=== PATIENT | female | born 1955 | race Caucasian/White ===

== ENCOUNTER → 2018-10-25 | Outpatient (CLI) | payer MEDICARE ==
--- NOTE | 2018-10-25 13:05 | Diagnostic Imaging Report ---
PROCEDURE: MRI left upper extremity without contrast. TECHNIQUE: Multiplanar, multisequence [id number]-cesrbhyy MRI of the left upper extremity was accomplished. INDICATION: Left shoulder pain. COMPARISON: There are no prior studies available for comparison. FINDINGS: The T2 coronal fat-saturated series shows a few small areas of slightly altered signal within the rotator cuff. These may be related to tendinosis. The bursal aspect of the anterior half of the rotator cuff is somewhat thinned and may be frayed. However, for the most part, the rotator cuff appears to be intact. The supraspinatus muscle is not retracted or bunched. There is hypertrophy of the acromioclavicular joint, and this does result in mild narrowing of the outlet for the supraspinatus muscle. There is also a trace amount of fluid in the subacromial and subdeltoid bursa indicating that there is an element of mild inflammation present. The biceps tendon and the subscapularis tendon are intact. There is no evidence for a tear of the labrum. There is no abnormal signal arising from the osseous structures to suggest bone edema or a fracture. IMPRESSION: 1. The small areas of altered signal within the rotator cuff may be related to tendinosis. The bursal aspect of the anterior half of the rotator cuff also seems to be thinned and perhaps slightly frayed. However, for the most part, the rotator cuff is intact and the supraspinatus muscle is not retracted or bunched. 2. There is mild narrowing of the outlet for the supraspinatus muscle due to acromioclavicular hypertrophy. There is also a small amount of fluid in the subacromial and subdeltoid bursa indicating there is mild inflammation. 3. The labrum is intact. 4. There is no acute bony abnormality noted. Dictated by: Dictated on workstation # [id number]
== END ==
LOC: RAD 11:44
PROVIDERS: ATTEND Nurse Practitioner Family
DX: M75.22 Bicipital tendinitis, left shoulder (principal); M89.312 Hypertrophy of bone, left shoulder; M25.412 Effusion, left shoulder; M60.812 Other myositis, left shoulder
CPT/HCPCS: 73221

== ENCOUNTER → 2018-11-01 | Outpatient (CLI) | payer MEDICARE ==
--- NOTE | 2018-11-01 10:00 | Diagnostic Imaging Report ---
PROCEDURE: MR imaging cervical spine without contrast. TECHNIQUE: Multiplanar, multisequence MR imaging of the cervical spine was performed without contrast. INDICATION: Left shoulder pain, limited range of motion. COMPARISON: There are no prior studies available for comparison. FINDINGS: The T2 sagittal images show the vertebral body heights and alignment to be within normal limits. The intervertebral spaces are fairly well-maintained although there is desiccation of the disc at every level. Furthermore, there is a disc bulge centrally at the C5-6 level. The disc indents the ventral aspect of thecal sac and narrows the AP diameter to approximately 7 mm. There is mild narrowing of the neural foramen bilaterally at this level. There is also a disc bulge central at the C6-7 level. The AP diameter of thecal sac is narrowed to 9 mm. There is also mild narrowing of the neural foramen bilaterally at this level. The remainder of the cervical spine is unremarkable for spinal stenosis or nerve root encroachment. There is no abnormal signal arising from the cord or the vertebral bodies to indicate an acute abnormality. There is no sign of a paraspinal mass. IMPRESSION: 1. 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 There is spinal stenosis at both of these levels with the C5-6 level being the more severely affected. 2. The remainder of the cervical spine is unremarkable for spinal stenosis or nerve root encroachment. 3. There is no acute bony abnormality identified and there is no sign of a cord lesion. Dictated by: Dictated on workstation # [id number]
== END ==
LOC: RAD 08:08
PROVIDERS: ATTEND Nurse Practitioner Family
DX: M50.321 Other cervical disc degeneration at C4-C5 level (principal); M47.812 Spondylosis without myelopathy or radiculopathy, cervical region; M48.02 Spinal stenosis, cervical region; M89.9 Disorder of bone, unspecified
CPT/HCPCS: 72141

== ENCOUNTER 2020-04-01 13:55 | Emergency (ER) | payer MEDICARE ==
[~2020-04-01] VITALS: Ht 182.9 cm; Wt 95.5 kg
[2020-04-01 14:00] VITALS: BP 152/56
--- NOTE | 2020-04-01 14:10 | ED General ---
General Stated Complaint: LT FACIAL DROOP Source of Information: Patient, RN/MD Exam Limitations: No Limitations History of Present Illness Date Seen by Provider: April 01, 2020 Time Seen by Provider: 13:55 Initial Comments This patient is a 65-year-old female presents to the emerge department complaining of her left upper lip is numb. States has been like this all day long and that she can get checked. On exam patient has minimal swelling to the left upper lip and appears in like she bit her lip patient states she might have done that in her sleep. Denies any other trauma. No other findings on exam. All cranial nerves. Intact patient given reassurance patient we'll treat with rest ice and Tylenol Motrin. Patient be discharged home Timing/Duration: 4-6 Hours Severity: Mild Modifying Factors: worse with Cold Therapy, worse with Eating, worse with Immobilization, worse with Medication, worse with Movement, worse with Rest, worse with Other Associated Systoms: No Denies Symptoms, No Chest Pain, No Cough, No Diaphoresis, No Fever/Chills, No Headaches, No Loss of Appetite, No Malaise, No Nausea/Vomiting, No Rash, No Seizure, No Shortness of Air, No Syncope, No Weakness, No Other Allergies and Home Medications Patient Home Medication List Home Medication List Reviewed: Yes Review of Systems Review of Systems Constitutional: see HPI EENTM: other (lip swelling and numbness); No see HPI, No no symptoms reported, No ear discharge, No hearing loss, No ear pain, No blurred vision, No double vision, No eye pain, No tearing, No vision loss, No dental problems, No hoarseness, No mouth pain, No mouth swelling, No epistaxis, No nose congestion, No nose pain, No throat pain, No throat swelling Respiratory: No no symptoms reported, No see HPI, No cough, No dyspnea on exertion, No hemoptysis, No orthopnea, No phlegm, No short of breath, No stridor, No wheezing, No other Cardiovascular: No no symptoms reported, No see HPI, No chest pain, No edema, No Hx of Intervention, No palpitations, No syncope, No vascular heart diseas, No other Gastrointestinal: No RUQ, No LUQ, No RLQ, No LLQ, No no symptoms reported, No see HPI, No abdominal pain, No constipation, No diarrhea, No dysphagia, No hematemesis, No heartburn, No jaundice, No loss of appetite, No melena, No nausea, No vomiting, No other Genitourinary: No no symptoms reported, No see HPI, No decreased output, No discharge, No dysuria, No frequency, No hematuria, No hesitancy, No incontinence, No nocturia, No pain, No other Musculoskeletal: No no symptoms reported, No see HPI, No back pain, No gout, No joint pain, No joint swelling, No muscle pain, No muscle stiffness, No muscle cramps, No muscle twitching, No muscle weakness, No neck pain, No other Skin: No no symptoms reported, No see HPI, No change in color, No change in hair/nails, No dryness, No hx of skin cancer, No lesions, No lumps, No pruritus, No rash, No other Psychiatric/Neurological: Denies No Symptoms Reported, Denies See HPI, Denies Anxiety, Denies Depressed, Denies Emotional Problems, Denies Headache, Denies Numbness, Denies Paresthesia, Denies Pre-Existing Deficit, Denies Seizure, Denies Tingling, Denies Tremors, Denies Weakness, Denies Other All Other Systems Reviewed Negative Unless Noted: Yes Past Pbcvjvp-Ftotdp-Bbaxak Hx Patient Social History Recent Foreign Travel: No Contact w/Someone Who Travel: No Physical Exam Vital Signs Capillary Refill : Height, Weight, BMI Height: '" Weight: lbs. oz. kg; BMI Method: General Appearance: No Apparent Distress, WD/WN HEENT: PERRL/EOMI, TMs Normal, Normal ENT Inspection, Pharynx Normal, Other (mild swelling to the left upper lip appears to have a mild traumatic injury possible bite al on the underside of her lip. No obvious signs of significant injury or abscess. All other neurological exam about the face is normal. Normal exam of cranial nerves.) Neck: Full Range of Motion, Normal Inspection, Non Tender, Supple Respiratory: Chest Non Tender, Lungs Clear, Normal Breath Sounds, No Accessory Muscle Use, No Respiratory Distress Cardiovascular: Regular Rate, Rhythm, No Edema, No Gallop, No JVD, No Murmur, Normal Peripheral Pulses Gastrointestinal: Normal Bowel Sounds, No Organomegaly, No Pulsatile Mass, Non Tender, Soft Extremity: Normal Capillary Refill, Normal Inspection, Normal Range of Motion, Non Tender, No Calf Tenderness, No Pedal Edema Neurologic/Psychiatric: Alert, Oriented x3, No Motor/Sensory Deficits, Normal Mood/Affect Skin: Normal Color, Warm/Dry, Other (swelling to the left upper lip as described in ENT exam) Progress/Results/Core Measures Suspected Sepsis SIRS Temperature: Pulse: Respiratory Rate: Blood Pressure / Mean: Results/Orders Vital Signs/I&O Capillary Refill : Progress Note : Time: 14:09 Progress Note Patient has mild traumatic injury causing swelling to the left upper lip. With numbness to that area only all other cranial nerves are intact. Patient was offered Benadryl in the emergency Department declines. Patient encouraged to rest use ice and Tylenol Motrin patient states understanding patient is discharged home follow up with PCP in 2-3 days. Departure Impression Primary Impression: Contusion of lip, initial encounter Disposition: 01 HOME, SELF-CARE Condition: Stable Departure-Patient Inst. Decision time for Depature: 14:10 Referrals: NO,LOCAL PHYSICIAN (PCP) Primary Care Physician ULICES MUNOZ APRN (Family) Primary Care Physician Patient Instructions: Contusion (DC) Add. Discharge Instructions: Patient encouraged to rest use ice and Tylenol Motrin patient states understanding patient is discharged home follow up with PCP in 2-3 days. BRUNA HECK MD April 01, 2020 14:10
--- OUTSIDE RECORDS SUMMARY | 2020-04-01 17:15 | XMS REPORT | Continuity of Care Document ---
Author Organization Unknown Address Unknown Phone Unavailable Allergies There is no data. Medications There is no data. Problems Date Dx Coded Attending Type Code Diagnosis Diagnosed By 10/28/2018 CAMRYN, AUDIE E SENIOR NET SOFTWARE ENGINEER Ot M25.412 EFFUSION, LEFT SHOULDER 10/28/2018 CAMRYN, AUDIE E SENIOR NET SOFTWARE ENGINEER Ot M60.812 OTHER MYOSITIS, LEFT SHOULDER 10/28/2018 CAMRYN, AUDIE E SENIOR NET SOFTWARE ENGINEER Ot M75.22 BICIPITAL TENDINITIS, LEFT SHOULDER 10/28/2018 CAMRYN, AUDIE E SENIOR NET SOFTWARE ENGINEER Ot M89.312 HYPERTROPHY OF BONE, LEFT SHOULDER 11/04/2018 CAMRYN, AUDIE E SENIOR NET SOFTWARE ENGINEER Ot M47.812 SPONDYLOSIS W/O MYELOPATHY OR RADICULOPA 11/04/2018 CAMRYN, AUDIE E SENIOR NET SOFTWARE ENGINEER Ot M48.02 SPINAL STENOSIS, CERVICAL REGION 11/04/2018 CAMRYN, AUDIE E SENIOR NET SOFTWARE ENGINEER Ot 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 11/04/2018 CAMRYN, AUDIE E SENIOR NET SOFTWARE ENGINEER Ot M89 .9 DISORDER OF BONE, UNSPECIFIED 11/16/2018 CAMRYN, AUDIE E SENIOR NET SOFTWARE ENGINEER Ot M25.412 EFFUSION, LEFT SHOULDER 11/16/2018 CAMRYN, AUDIE E SENIOR NET SOFTWARE ENGINEER Ot M60.812 OTHER MYOSITIS, LEFT SHOULDER 11/16/2018 CAMRYN, AUDIE E SENIOR NET SOFTWARE ENGINEER Ot M75.22 BICIPITAL TENDINITIS, LEFT SHOULDER 11/16/2018 CAMRYN, AUDIE E SENIOR NET SOFTWARE ENGINEER Ot M89.312 HYPERTROPHY OF BONE, LEFT SHOULDER 11/21/2018 CAMRYN, AUDIE E SENIOR NET SOFTWARE ENGINEER Ot M47.812 SPONDYLOSIS W/O MYELOPATHY OR RADICULOPA 11/21/2018 CAMRYN, AUDIE E SENIOR NET SOFTWARE ENGINEER Ot M48.02 SPINAL STENOSIS, CERVICAL REGION 11/21/2018 CAMRYN, AUDIE E SENIOR NET SOFTWARE ENGINEER Ot 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 11/21/2018 CAMRYN, AUDIE E SENIOR NET SOFTWARE ENGINEER Ot M89 .9 DISORDER OF BONE, UNSPECIFIED 11/29/2018 AUDIE COWAN [place] SENIOR NET SOFTWARE ENGINEER Ot M25.412 EFFUSION, LEFT SHOULDER 11/29/2018 AUDIE COWAN SENIOR NET SOFTWARE ENGINEER Ot M60.812 OTHER MYOSITIS, LEFT SHOULDER 11/29/2018 CAMRYN AUDIE E SENIOR NET SOFTWARE ENGINEER Ot M75.22 BICIPITAL TENDINITIS, LEFT SHOULDER 11/29/2018 CAMRYN AUDIE E SENIOR NET SOFTWARE ENGINEER Ot M89.312 HYPERTROPHY OF BONE, LEFT SHOULDER 12/05/2018 AUDIE COWAN SENIOR NET SOFTWARE ENGINEER Ot M47.812 SPONDYLOSIS W/O MYELOPATHY OR RADICULOPA 12/05/2018 CAMRYN AUDIE E SENIOR NET SOFTWARE ENGINEER Ot M48.02 SPINAL STENOSIS, CERVICAL REGION 12/05/2018 AUDIE COWAN SENIOR NET SOFTWARE ENGINEER Ot 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 Results There is no data. Encounters ACCT No. Visit Date/Time Discharge Status Pt. Type Provider Facility Loc./Unit Complaint [id number] 11/01/2018 08:08:00 018 23:59:59 [facility] Outpatient AUDIE COWAN SENIOR NET SOFTWARE ENGINEER [facility] RAD NECK PAIN,CERVICAL SPON DYLOSIS [id number] 10/25/2018 11:44:00 018 23:59:59 [facility] Outpatient UADIE COWAN SENIOR NET SOFTWARE ENGINEER [facility] RAD PAIN, BICEP TENDONITIS
== END 2020-04-01 14:19 | disposition home or self-care (01) ==
LOC: EDUNIT# 13:55 → ER FS 13:57
DX: S00.531A Contusion of lip, initial encounter (principal); X58.XXXA Exposure to other specified factors, initial encounter
CPT/HCPCS: 99282

== ENCOUNTER → 2020-04-22 | Outpatient (CLI) | payer MEDICARE ==
--- NOTE | 2020-04-22 10:22 | Diagnostic Imaging Report ---
PROCEDURE: CT head without contrast. TECHNIQUE: Multiple contiguous axial images were obtained through the brain without the use of intravenous contrast. Auto Exposure Controls were utilized during the CT exam to meet ALARA standards for radiation dose reduction. INDICATION: Left-sided facial numbness. Currently asymptomatic. COMPARISON: None. FINDINGS: No large acute territorial ischemia, mass, or hemorrhage. No midline shift or mass effect. Decreased attenuation is seen in the periventricular and subcortical white matter. The ventricles, cortical sulci, and basilar cisterns are patent and unremarkable. The calvarium is intact. The visualized paranasal sinuses are clear. IMPRESSION: 1. No large acute territorial ischemia, mass, or hemorrhage. 2. Age-indeterminate microvascular disease in the periventricular and subcortical white matter. Dictated by: Dictated on workstation # [id number]
== END ==
LOC: RAD FS 08:21
PROVIDERS: ATTEND Nurse Practitioner Family
DX: I63.9 Cerebral infarction, unspecified (principal); I67.82 Cerebral ischemia
CPT/HCPCS: 70450